=== PATIENT | male | born 1965 | race Caucasian/White ===

== ENCOUNTER 2017-08-05 11:50 | Emergency (ER) | payer MEDICAID ==
[~2017-08-05] VITALS: Ht 170.2 cm; Wt 59.9 kg
[2017-08-05 12:00] VITALS: Ht 170.2 cm; Wt 59.9 kg
[2017-08-05 15:00] VITALS: BP 124/71
== END 2017-08-05 14:50 | disposition home or self-care (01) ==
LOC: ED 11:50
DX: M54.5 Low back pain (principal)
CPT/HCPCS: J1885

== ENCOUNTER 2019-04-29 08:07 | Emergency (ER) | payer MEDICAID ==
[~2019-04-29] VITALS: Ht 170.2 cm; Wt 49.4 kg
[2019-04-29 08:16] VITALS: Ht 170.2 cm; Wt 49.4 kg
[2019-04-29 08:35] LABS: PLATELET COUNT 288 x10^3mcL (130-400); RED CELL DISTRIBUTION WIDTH 13.3 % (11.5-14.5)
[2019-04-29 08:39] LABS: BASOPHIL % 0 % (0-2)
[2019-04-29 09:38] LABS: CALCIUM 9.3 mg/dL (8.5-10.1); CARBON DIOXIDE 31.4 mmol/L (21-32); CHLORIDE SERUM 93 mmol/L (98-107); CREATININE SERUM 1.2 mg/dL (0.7-1.3); GFR1 > 60 mL/min; GLUCOSE SERUM 98 mg/dL (74-106); POTASSIUM SERUM 3.5 mmol/L (3.5-5.1); SODIUM SERUM 134 mmol/L (136-145)
[2019-04-29 09:42] LABS: ALBUMIN 3.7 g/dL (3.4-5.0); ALKALINE PHOSPHATASE 105 U/L (46-116); ALT/SGPT 36 U/L (16-63); AST/SGOT 40 U/L (15-37); LIPASE 59 IU/L (73-393); TOTAL PROTEIN, SERUM 8.2 g/dL (6.4-8.2)
[2019-04-29 11:51] VITALS: BP 145/60
== END 2019-04-29 11:51 | disposition home or self-care (01) ==
LOC: ED 08:07
DX: R10.11 Right upper quadrant pain (principal); R11.2 Nausea with vomiting, unspecified
CPT/HCPCS: J1885; J2405

== ENCOUNTER 2019-09-16 21:58 | Emergency (ER) | payer OTHER ==
[~2019-09-16] VITALS: Ht 170.2 cm; Wt 68.0 kg
[2019-09-16 22:05] VITALS: Ht 170.2 cm; Wt 68.0 kg
[2019-09-16 22:34] VITALS: BP 114/79
== END 2019-09-16 22:35 | disposition other institution (70) ==
LOC: ED 21:58
DX: Z02.89 Encounter for other administrative examinations (principal)